=== PATIENT | male | born 1980 | race Two or more races ===

== ENCOUNTER 2017-02-16 14:16 | Emergency (ER) | payer OTHER ==
[2017-02-16 14:31] VITALS: BP 124/85; PULSE 84; TEMP 98.3; BMI 38.4
--- NOTE | 2017-02-16 15:07 | PDOC ---
History of Present Illness - General Chief Complaint: Pain Stated Complaint: LT LEG PAIN Time Seen by Provider: 02/16/17 14:36 History Source: Patient Exam Limitations: No Limitations - History of Present Illness Initial Comments: 02/16/17 15:14 36 yr male with c/o left knee injury "2 sundays ago" fell while taking out an air conditioner. Pt states yesterday he re-injured it falling in the pool. Pt states he is unable to see an orthopedist. Pt has no medical history or allergies. 02/16/17 15:20 Past History - Past Medical History Allergies/Adverse Reactions: Allergies Allergy/AdvReac Type Severity Reaction Status Date / Time hydrochlorothiazide Allergy Verified 02/16/17 14:21 [From Hyzaar] losartan potassium Allergy Verified 02/16/17 14:21 [From Hyzaar] Home Medications: Ambulatory Orders NK [No Known Home Medication] 02/16/17 Anemia: No Asthma: No Cancer: No Cardiac Disorders: No CVA: No COPD: No CHF: No DVT: No Dementia: No Diabetes: Yes (not any more) Dialysis: No GI Disorders: No Disorders: No HTN: Yes Hypercholesterolemia: No HIV: No Kidney Stones: Yes Liver Disease: No Psychiatric Problems: No Seizures: No Thyroid Disease: No Lung CA: No - Surgical History Abdominal Surgery: Yes (GASTRIC SLEEVE: 2011) Appendectomy: No Cardiac Surgery: No Cholecystectomy: No Lung Surgery: No Neurologic Surgery: No Orthopedic Surgery: No - Immunization History Immunization Up to Date: Yes - Psycho/Social/Smoking Cessation Hx Anxiety: Yes Suicidal Ideation: No Smoking Status: No Smoking History: Never smoked Have you smoked in the past 12 months: Yes Number of Cigarettes Smoked Daily: 6 Information on smoking cessation initiated: Yes 'Breaking Loose' booklet given: 02/16/17 Hx Alcohol Use: No Drug/Substance Use Hx: No Substance Use Type: None Hx Substance Use Treatment: No Review of Systems - Review of Systems Able to Perform ROS?: Yes Is the patient limited Albanian proficient: No Constitutional: No: Symptoms Reported HEENTM: No: Symptoms Reported Respiratory: No: Symptoms reported Cardiac (ROS): No: Symptoms Reported ABD/GI: No: Symptoms Reported : No: Symptoms Reported Musculoskeletal: Yes: See HPI *Physical Exam - Vital Signs Last Vital Signs Temp Pulse Resp BP Pulse Ox 98.3 F 84 19 124/85 99 02/16/17 14:18 02/16/17 14:18 02/16/17 14:18 02/16/17 14:18 02/16/17 14:18 - Physical Exam General Appearance: Yes: Nourished, Appropriately Dressed HEENT: positive: EOMI, GILBERTO Neck: negative: Tender Respiratory/Chest: positive: Lungs Clear, Normal Breath Sounds Cardiovascular: positive: Regular Rhythm, Regular Rate Extremity: positive: Normal Capillary Refill, Normal Inspection, Normal Range of Motion, Tender (anterior patella with extension, no swelling no crepitus, nv intact FROM ) Integumentary: positive: Normal Color, Dry, Warm Neurologic: positive: Fully Oriented, Alert, Normal Mood/Affect, Normal Response , Motor Strength 12/02 ED Treatment Course - RADIOLOGY Radiology Studies Ordered: Category Date Time Status KNEE 3 POS-LEFT [RAD] Stat Radiology 02/16/17 14:59 Ordered Medical Decision Making - Medical Decision Making 02/16/17 15:22 cc: knee injury will xray to r/o fracture no deformity or swelling nv intact FROM 02/16/17 15:23 *DC/Admit/Observation/Transfer Diagnosis at time of Disposition: Knee injury Qualifiers: Encounter type: initial encounter Laterality: left Qualified Code(s): S89.92XA - Unspecified injury of left lower leg, initial encounter - Discharge Dispostion Disposition: HOME Condition at time of disposition: Good - Referrals Referrals: Ilia Pedroza MD [Primary Care Provider] - Robert Cooper MD [Staff Physician] - - Patient Instructions Additional Instructions: follow with the orthopedist listed below, takes your insurance call today tell them you were in the ER and need to see the orthopedist within a week elevate the knee and apply ice every 2hrs for 20 minutes take naprosyn as directed for pain (over the counter Aleve or naprosyn) - Post Discharge Activity
== END 2017-02-16 16:01 | disposition home or self-care (01) ==
LOC: JERFT 14:16
DX: S89.82XA Other specified injuries of left lower leg, initial encounter (principal); W16.012A Fall into swimming pool striking water surface causing other injury, initial encounter; Y93.11 Activity, swimming; Y92.34 Swimming pool (public) as the place of occurrence of the external cause; Y99.8 Other external cause status
CPT/HCPCS: 73562-TC-LT; 99281-25

== ENCOUNTER 2017-07-21 17:25 | Emergency (ER) | payer OTHER ==
[2017-07-21 17:40] VITALS: BP 130/82; PULSE 69; TEMP 98.5; BMI 39.9
--- NOTE | 2017-07-21 17:44 | PDOC ---
History of Present Illness - General History Source: Patient Exam Limitations: No Limitations - History of Present Illness Initial Comments: 07/21/17 19:00 The patient is a 36 year old male, with a significant past medical history s/p gastric bypass (2011), who presents to the emergency department with, significant lower back pain and headache. He reports his lower back pain to be constant for three days. He describes his lower back pain to be radiating across and shooting down to his right leg and buttocks. He reports that his lower back pain has caused He reports his headache to have been intermittent for 2 weeks and constant for 4 days. He describes his headache to begin at the back of his neck and diffuse to the front. He reports to have taken Tylenol Arthritis for his backache and headache, without relief. He reports to previously have hypertension and Diabetes mellitus which has resolved since his gastric bypass surgery. He denies any recent cold or allergies. He denies any recent fevers, chills, or dizziness. He denies any recent nausea, vomit, diarrhea or constipation. He denies any recent chest pain or shortness of breath. He denies any recent dysuria, frequency, urgency or hematuria. Allergies: Hyzaar (Rash) Past surgical history: Gastric bypass (2011) Social History: Smoker (6 cigarettes per day). Social EtOH use. Denies recreational drug use. Primary Care Physician: Dr. Ilia Pedroza <Nataly Ugalde - Last Filed: 07/21/17 19:00> <Deandre Turner - Last Filed: 07/26/17 08:37> - General Chief Complaint: Pain Stated Complaint: BACK PAIN, HEADACHE Time Seen by Provider: 07/21/17 17:33 Past History <Nataly Ugalde - Last Filed: 07/21/17 19:00> - Past Medical History Anemia: No Asthma: No Cancer: No Cardiac Disorders: No CVA: No COPD: No CHF: No DVT: No Dementia: No Diabetes: Yes (NOT ANY MORE) Dialysis: No GI Disorders: No Disorders: No HTN: Yes (H/O) Hypercholesterolemia: No Kidney Stones: Yes (H/O) Liver Disease: No Psychiatric Problems: No Seizures: No Thyroid Disease: No Lung CA: No - Surgical History Abdominal Surgery: Yes (GASTRIC SLEEVE: 2012) Appendectomy: No Cardiac Surgery: No Cholecystectomy: No Lung Surgery: No Neurologic Surgery: No Orthopedic Surgery: No - Immunization History Immunization Up to Date: Yes - Suicide/Smoking/Psychosocial Hx Smoking Status: No Smoking History: Current every day smoker Have you smoked in the past 12 months: Yes Number of Cigarettes Smoked Daily: 6 Information on smoking cessation initiated: Yes 'Breaking Loose' booklet given: 07/21/17 Hx Alcohol Use: (social) Drug/Substance Use Hx: No Substance Use Type: None Hx Substance Use Treatment: No <Deandre Turner - Last Filed: 07/26/17 08:37> - Past Medical History Allergies/Adverse Reactions: Allergies Allergy/AdvReac Type Severity Reaction Status Date / Time hydrochlorothiazide Allergy Verified 07/21/17 17:28 [From Hyzaar] losartan potassium Allergy Verified 07/21/17 17:28 [From Hyzaar] Home Medications: Ambulatory Orders Hydroxyzine Pamoate [Vistaril -] 50 mg PO QID PRN #20 capsule 07/21/17 Ketorolac Tromethamine [Toradol] 10 mg PO Q6H #20 tablet 07/21/17 Oxycodone HCl/Acetaminophen [Percocet 5-325 mg Tablet] 1 - 2 tab PO Q6H PRN #12 tablet MDD 8 07/21/17 Zolpidem Tartrate [Ambien Cr] 6.25 mg PO HS PRN #6 tab.mphase MDD 1 07/21/17 Trauma Specific PMHX - Complaint Specific PMHX Arthritis: No Back Injury: Yes Neck Injury: No Hx Sacro Iliac Joint Dysfunction: No <Deandre Turner - Last Filed: 07/26/17 08:37> Review of Systems - Review of Systems Able to Perform ROS?: Yes Comments:: 07/21/17 19:01 CONSTITUTIONAL: Absent: fever, no chills, no fatigue EYES: Absent: visual changes ENT: Absent: ear pain, no sore throat CARDIOVASCULAR: Absent: chest pain, no palpitations RESPIRATORY: Absent: cough, no SOB GI: Absent: abdominal pain, no nausea, no vomiting, no constipation, no diarrhea GENITOURINARY: Absent: dysuria, no frequency, no hematuria MUSKULOSKELETAL: +Lower back pain. +Right leg and gluteus marci pain. Absent: no arthralgia SKIN: Absent: rash NEURO:+Headache All Other Systems: Reviewed and Negative <Nataly Ugalde - Last Filed: 07/21/17 19:00> *Physical Exam - Vital Signs Last Vital Signs Temp Pulse Resp BP Pulse Ox 98.5 F 69 18 130/82 100 07/21/17 17:25 07/21/17 17:25 07/21/17 17:25 07/21/17 17:25 07/21/17 17:25 - Physical Exam Comments: 07/21/17 19:01 GENERAL: + Moderately obese. +Mild distress due to back pain but fully ambulatory and cooperative. No reported bowel or bladder incontinence or retention good sphincter tone. Well developed, well nourished. Awake and alert. HEENT: Pupils 4mm round and reactive. Fundoscopic normal. Normocephalic, atraumatic. PERRLA, EOMI. No conjunctival pallor. Sclera are non-icteric. Moist mucous membranes. Oropharynx is clear. NECK: Supple. Full ROM. No JVD. Carotid pulses 2+ and symmetric, without bruits. No thyromegaly. No lymphadenopathy. CARDIOVASCULAR: Regular rate and rhythm. No murmurs, rubs, or gallops. Distal pulses are 2+ and symmetric. PULMONARY: No evidence of respiratory distress. Lungs clear to auscultation bilaterally. No wheezing, rales or rhonchi. ABDOMINAL: Soft. Non-tender. Non-distended. No rebound or guarding. No organomegaly. Normoactive bowel sounds. MUSCULOSKELETAL Normal range of motion at all joints. No bony deformities or tenderness. No CVA tenderness. EXTREMITIES: No cyanosis. No clubbing. No edema. No calf tenderness. SKIN: Warm and dry. Normal capillary refill. No rashes. No jaundice. NEUROLOGICAL: Spinal loss of normal lumbar lordosis. Straightening and spasming of paravertebral vertebrae. No point tenderness or inflammation. Scarring apparent due to multiple back surgeries. Mild weakness with plantar flexion of foot. No sensory deficits. Reflexes intact. Straight leg raising positive with pain radiating to right posterior buttock and thigh. No saddle anesthesia. Alert, awake, appropriate. Cranial nerves 2-12 intact. No deficits to light touch and temperature in face, upper extremities. No motor deficits in the in face, upper extremities. Normoreflexic in the upper and lower extremities. Normal speech. Toes are down-going bilaterally. Gait is normal without ataxia. PSYCHIATRIC: Cooperative. Good eye contact. Appropriate mood and affect. <Nataly Ugalde - Last Filed: 07/21/17 19:00> - Vital Signs Last Vital Signs Temp Pulse Resp BP Pulse Ox 98.5 F 69 18 130/82 100 07/21/17 17:25 07/21/17 17:25 07/21/17 17:25 07/21/17 17:25 07/21/17 17:25 <Deandre Turner - Last Filed: 07/26/17 08:37> ED Treatment Course - LABORATORY CBC & Chemistry Diagram: 07/21/17 18:30 07/21/17 18:30 - ADDITIONAL ORDERS Additional order review: Laboratory Results 07/21/17 18:30 Urine Color Yellow Urine Appearance Clear Urine pH 5.5 Ur Specific [place] 1.015 Urine Protein Negative Urine Glucose (UA) Negative Urine Ketones Negative Urine Blood 2+ H Urine Nitrite Negative Urine Bilirubin Negative Urine Urobilinogen 0.2 Ur Leukocyte Esterase Negative Urine RBC 5-10 Urine WBC 2-4 Ur Epithelial Cells Few Urine Bacteria Few - Medications Given in the ED: ED Medications Discontinued Medications Generic Name Dose Route Start Last Admin Trade Name Narenq PRN Reason Stop Dose Admin Hydroxyzine Pamoate 50 mg 07/21/17 18:05 07/21/17 18:25 Vistaril - PO 07/21/17 18:06 50 mg ONCE ONE Administration Ketorolac Tromethamine 60 mg 07/21/17 18:05 07/21/17 18:30 Toradol Injection - IM 07/21/17 18:06 60 mg ONCE ONE Administration <Nataly Ugalde - Last Filed: 07/21/17 19:00> - LABORATORY CBC & Chemistry Diagram: 07/21/17 18:30 07/21/17 18:30 <Deandre Turner - Last Filed: 07/26/17 08:37> Medical Decision Making - Medical Decision Making 07/21/17 18:41 Patient with an exacerbation of chronic low back pain, bilateral, with signs of radiculopathy on the right. No bowel or bladder dysfunction. No trauma or other injuries noted. There are no inflammatory changes noted in the lumbosacral spine. There is evidence of spasm and loss of lumbar lordosis. Mild weakness of plantar flexion and straight leg positive. Neurological exam is otherwise normal. There is no nuchal rigidity, ENT is clear , and his description of the headache as emanating from the base of the cervical spine and both shoulders, progressing to both occipital areas, suggests tension/muscle spasm. 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 Considerable relief with Toradol, regarding both the back pain and the headache. Patient's neurological status is stable. His headache is resolving. His back pain is improved. Medications prescribed and referred to exhibition specialist for further treatment. CBC, chemistries, and urinalysis are still pending. Signed out to Dr. Sofia 7 PM pending lab results and further disposition. <Deandre Turner - Last Filed: 07/26/17 08:37> *DC/Admit/Observation/Transfer - Attestations Scribe Attestion: 07/21/17 19:01 Documentation prepared by Nataly Ugalde, acting as medical record specialist for Deandre Longoria MD. <Nataly Ugalde - Last Filed: 07/21/17 19:00> - Discharge Dispostion Admit: No <Deandre Turner - Last Filed: 07/26/17 08:37> Diagnosis at time of Disposition: Lumbar pain with radiation down right leg - Discharge Dispostion Disposition: HOME Condition at time of disposition: Improved - Prescriptions Prescriptions: Hydroxyzine Pamoate [Vistaril -] 50 mg PO QID PRN #20 capsule PRN Reason: muscle relaxation, sleep Ketorolac Tromethamine [Toradol] 10 mg PO Q6H #20 tablet Oxycodone HCl/Acetaminophen [Percocet 5-325 mg Tablet] 1 - 2 tab PO Q6H PRN #12 tablet MDD 8 PRN Reason: Severe Pain Zolpidem Tartrate [Ambien Cr] 6.25 mg PO HS PRN #6 tab.mphase MDD 1 PRN Reason: Insomnia - Referrals Referrals: Ilia Pedroza MD [Primary Care Provider] - 3 days Shivam Nguyen MD [Staff Physician] - 1 week - Patient Instructions Printed Discharge Instructions: DI for Sciatica - Post Discharge Activity Forms/Work/School Notes: Back to Work
[2017-07-21] MEDS ORDERED: KETOROLAC TROMETHAMINE 60 MG/2 ML VIAL IM ONE (18:05)
[2017-07-21] MEDS ORDERED: hydrOXYzine PAMOATE 50 MG CAPSULE (FP) PO ONE (18:05)
[2017-07-21] MEDS ORDERED: hydrOXYzine PAMOATE 25 MG CAPSULE (FP) PO ONE (18:08)
[2017-07-21] MEDS ORDERED: KETOROLAC TROMETHAMINE 60 MG/2 ML VIAL ONE (18:08)
[2017-07-21 18:40] LABS: PH,URINE 5.5 (4.5-8); URINE APPEARANCE Clear; URINE BILIRUBIN Negative (NEGATIVE); URINE GLUCOSE (UA) Negative (NEGATIVE); URINE KETONE Negative (NEGATIVE); URINE LEUK ESTERASE Negative (NEGATIVE); URINE NITRITE Negative (NEGATIVE); URINE PROTEIN Negative (NEGATIVE); URINE UROBILINOGEN 0.2 (0.2-1.0)
[2017-07-21 18:44] LABS: URINE BLOOD 2+ (NEGATIVE); URINE COLOR YELLOW
[2017-07-21 18:50] LABS: URINE BACTERIA FEW /hpf (NEGATIVE)
[2017-07-21 18:59] LABS: BASO % 0.4 % (0-2.0); EOS % 0.8 % (0-4.5); MCH 29.1 pg (25.7-33.7); MCHC 34.6 g/dl (32.0-35.9); MEAN CELL VOLUME 84.2 fl (80-96); MEAN PLT VOLUME 9.8 fl (7.5-11.1); NEUT % 70.5 % (42.8-82.8); PLATELET COUNT 184 K/MM3 (134-434); RDW 12.6 % (11.9-15.9); WHITE BLOOD COUNT 9.3 K/mm3 (4.0-10.8)
[2017-07-21 19:01] LABS: NEUT # 6.5 # (42.8-82.8)
[2017-07-21 19:02] LABS: EOS # 0.1 #; LYMPH # 2.1 # (8-40); MONO # 0.6 #
[2017-07-21 19:07] LABS: ALK PHOS 54 U/L (32-92); ANION GAP 6 (8-16); BILIRUBIN,TOTAL 0.4 mg/dl (0.2-1.0); CALCIUM 9.1 mg/dl (8.4-10.2); CO2 29 mmol/L (22-28); CREATININE 0.7 mg/dl (0.6-1.3); GLUCOSE,RANDOM 81 mg/dl (74-106); SGOT/AST 22 U/L (10-42); SGPT/ALT 19 U/L (10-40); TOT PROT 7.7 g/dl (6.4-8.3)
== END 2017-07-21 19:48 | disposition home or self-care (01) ==
LOC: FER 17:25
PROC: 3E0233Z Introduction of Anti-inflammatory into Muscle, Percutaneous Approach (ICD-10-PCS; principal; 2017-07-21)
DX: M54.5 Low back pain (principal); M79.604 Pain in right leg
CPT/HCPCS: 36415; 72100-TC; 80053; 81003; 81015; 85025; 99283-25

== ENCOUNTER 2018-06-13 21:19 | Emergency (ER) | payer SELFPAY ==
--- NOTE | 2018-06-13 21:25 | PDOC ---
Rapid Medical Evaluation Time Seen by Provider: 06/13/18 21:22 Medical Evaluation: Allergies Allergy/AdvReac Type Severity Reaction Status Date / Time hydrochlorothiazide Allergy Verified 10/15/17 07:46 [From Hyzaar] losartan potassium Allergy Verified 10/15/17 07:46 [From Hyzaar] 06/13/18 21:22 I have performed a brief in-person evaluation of this patient. The patient presents with a chief complaint of: chest tightness radiating to left arm x1 hour Pertinent physical exam findings: Lungs CTAB. RRR. No m/r/g. I have ordered the following: EKG, labs, urine, CXR The patient will proceed to the ED for further evaluation. Discharge Disposition - Diagnosis Chest pain - Referrals - Patient Instructions - Post Discharge Activity
[2018-06-13 21:26] VITALS: BP 142/85; PULSE 63; TEMP 98.2; BMI 39.9
[2018-06-13 22:09] LABS: BASO % 0.5 % (0-2.0); EOS % 0.5 % (0-4.5); HEMATOCRIT 45.4 % (35.4-49); HEMOGLOBIN 15.8 GM/dL (11.7-16.9); LYMPH % 21.9 % (8-40); MCH 29.2 pg (25.7-33.7); MCHC 34.8 g/dl (32.0-35.9); MEAN CELL VOLUME 83.7 fl (80-96); MEAN PLT VOLUME 9.5 fl (7.5-11.1); MONO % 6.7 % (3.8-10.2); NEUT % 70.4 % (42.8-82.8); PLATELET COUNT 211 K/MM3 (134-434); RBC 5.42 M/mm3 (4.00-5.60); RDW 13.5 % (11.9-15.9); WHITE BLOOD COUNT 9.2 K/mm3 (4.0-10.0)
[2018-06-13] MEDS ORDERED: ASPIRIN 325 MG ENTERIC COATED TABLET (FP) PO ONE (22:24)
[2018-06-13] MEDS ORDERED: ASPIRIN 325 MG TABLET ONE (22:31)
[2018-06-13 22:33] LABS: INR 1.02 (0.83-1.09)
[2018-06-13 23:02] LABS: URINE APPEARANCE CLEAR; URINE BILIRUBIN NEGATIVE (<2.0 mg/dL); URINE COLOR LTYELLOW; URINE GLUCOSE (UA) NEGATIVE (NEGATIVE); URINE KETONE NEGATIVE (NEGATIVE); URINE LEUK ESTERASE NEGATIVE (NEGATIVE); URINE NITRITE NEGATIVE (NEGATIVE); URINE PROTEIN NEGATIVE (NEGATIVE); URINE UROBILINOGEN NEGATIVE mg/dL (0.2-1.0)
[2018-06-13 23:04] LABS: ALBUMIN 3.6 g/dl (3.4-5.0); ALK PHOS 70 U/L (45-117); ANION GAP 9 MMOL/L (8-16); BILIRUBIN,TOTAL 0.3 mg/dL (0.2-1); BLOOD UREA NITROGEN 10 mg/dL (7-18); CALCIUM 8.4 mg/dL (8.5-10.1); CHLORIDE 105 mmol/L (98-107); CO2 25 mmol/L (21-32); CREATININE 0.7 mg/dL (0.55-1.3); GLUCOSE,RANDOM 94 mg/dL (74-106); POTASSIUM 3.5 mmol/L (3.5-5.1); SGOT/AST 25 U/L (15-37); SGPT/ALT 35 U/L (13-61); SODIUM 139 mmol/L (136-145); TOT PROT 7.9 g/dl (6.4-8.2)
--- NOTE | 2018-06-13 23:12 | PDOC ---
Attending Attestation - HPI HPI: 06/13/18 23:13 The patient is a 37 year old male, with a significant past medical history of gastric sleeve (2011), scoliosis, and laminectomy, who presents to the emergency department with, chest pain. As per patient, his chest pain onset 2 hours ago radiating to his left arm. Upon arriving to the ED, the patient notes his pain feels like a tightness with the left arm pain. Patient endorses at the time of the pain he was drinking (4th glass of rum). During his episode of chest pain he experienced an associated of diaphoresis and shortness of breath which has since resolved. He notes to previously have hypertension and Diabetes mellitus which has resolved since his gastric bypass surgery. He denies any recent fevers, chills, headache or dizziness. He denies any recent nausea, vomit, diarrhea or constipation. He denies any recent dysuria, frequency, urgency or hematuria. Allergies: Hyzaar (Rash), Past surgical history: Gastric bypass (2011) Laminectomy. Social History: Smoker (6 cigarettes per day). Social EtOH use. Denies recreational drug use. Primary Care Physician: Dr. Ilia Pedroza <Nataly Ugalde - Last Filed: 06/13/18 23:12> - Resident Resident Name: Syeda Live - ED Attending Attestation I have performed the following: I have examined & evaluated the patient, The case was reviewed & discussed with the resident, I agree w/resident's findings & plan, Exceptions are as noted - Physicial Exam PE: 06/14/18 00:57 agree with exam as documented by resident - Medical Decision Making 06/14/18 00:57 Young male with DM? htn, large habitus here with chest pain with concerning features. Left sided pressure like px, radiating down the L arm a/w sob, diaphoresis, starting 2 hours ago. Currently pain free w/o intervention f/u labs, ekg, serial troponin re-eval dispo per clinical course Patient requesting to leave before completion of work up. Pt is AOx3 with capacity to decide course of care. <Medhat Morrow - Last Filed: 06/14/18 01:02> Attestations - Attestations 06/13/18 23:13 Documentation prepared by Nataly Ugalde, acting as medical receptionist biller for Medhat Morrow MD. <Nataly Ugalde - Last Filed: 06/13/18 23:12>
--- NOTE | 2018-06-13 23:40 | PDOC ---
History of Present Illness - General Chief Complaint: Chest Pain Stated Complaint: CHEST PAIN Time Seen by Provider: 06/13/18 21:22 History Source: Patient Exam Limitations: No Limitations - History of Present Illness Initial Comments: 06/13/18 23:36 Pt is a 37yo m with PMH of gastric bypass 2011, resolved htn, presenting to ED with complaints of chest pain that started 1 hour prior to ED arrival. Pt says he was sitting in his recliner, on his 4th cup of rum when he had sudden onset chest pain radiating down to L arm with diaphoresis. Pt described pain as a squeezing type of pain. He has never had pain like this before. Associated with shortness of breath. He denies cough, fever, chills, back pain, neck pain, headache, loss of consciousness. He says chest pain has subsided a little but has pain in his L arm, mainly in the hand. Pt says his grandmother had an DC when she was older. Denies DC or heart problems in family when they were young. Smokes around 8 cigarettes daily. PMD: Yovany PMH: see hpi PSH: see hpi Meds: none Social: smokes 8 cigarettes/daily Allergies: valsartan Past History - Past Medical History Allergies/Adverse Reactions: Allergies Allergy/AdvReac Type Severity Reaction Status Date / Time hydrochlorothiazide Allergy Verified 06/13/18 21:26 [From Hyzaar] losartan potassium Allergy Verified 06/13/18 21:26 [From Hyzaar] Home Medications: Ambulatory Orders NK [No Known Home Medication] 10/15/17 Anemia: No Asthma: No Cancer: No Cardiac Disorders: No CVA: No COPD: No CHF: No DVT: No Dementia: No Diabetes: Yes (NOT ANY MORE) Dialysis: No GI Disorders: No Disorders: No HTN: Yes (H/O) Hypercholesterolemia: No Kidney Stones: Yes (H/O) Liver Disease: No Psychiatric Problems: No Seizures: No Thyroid Disease: No Lung CA: No - Surgical History Abdominal Surgery: Yes (GASTRIC SLEEVE: 2011) Appendectomy: No Cardiac Surgery: No Cholecystectomy: No Lung Surgery: No Neurologic Surgery: No Orthopedic Surgery: No - Immunization History Immunization Up to Date: Yes - Suicide/Smoking/Psychosocial Hx Smoking Status: No Smoking History: Never smoked Have you smoked in the past 12 months: No Number of Cigarettes Smoked Daily: 6 Information on smoking cessation initiated: No 'Breaking Loose' booklet given: 07/21/17 Hx Alcohol Use: No Drug/Substance Use Hx: No Substance Use Type: None Hx Substance Use Treatment: No *Physical Exam - Vital Signs Last Vital Signs Temp Pulse Resp BP Pulse Ox 98.2 F 63 16 142/85 100 06/13/18 21:24 06/13/18 21:24 06/13/18 21:24 06/13/18 21:24 06/13/18 21:24 Heart Score/ECG Review - History History: Highly suspicious - Electrocardiogram EKG: Normal - Age Age: </= 45 - Risk Factors Risk Factors Heart Score: Yes Smoking History, Yes Hx Obesity Based on the list above the patient has:: 1-2 risk factors - Troponin Troponin: </= normal limit - Score Heart Score - Total: 3 ED Treatment Course - LABORATORY CBC & Chemistry Diagram: 06/13/18 21:47 06/13/18 22:28 - ADDITIONAL ORDERS Additional order review: Laboratory Results 06/13/18 06/13/18 06/13/18 22:28 22:28 22:00 PT with INR INR Sodium 139 Potassium 3.5 Chloride 105 Carbon Dioxide 25 Anion Gap 9 BUN 10 Creatinine 0.7 Creat Clearance w eGFR > 60 Random Glucose 94 Calcium 8.4 L Magnesium Total Bilirubin 0.3 AST 25 ALT 35 Alkaline Phosphatase 70 Creatine Kinase Troponin I < 0.02 Total Protein 7.9 Albumin 3.6 Urine Color Ltyellow Urine Appearance Clear Urine pH 6.0 Ur Specific [place] 1.016 Urine Protein Negative Urine Glucose (UA) Negative Urine Ketones Negative Urine Blood Negative Urine Nitrite Negative Urine Bilirubin Negative Urine Urobilinogen Negative Ur Leukocyte Esterase Negative 06/13/18 06/13/18 21:47 21:47 PT with INR 12.00 INR 1.02 Sodium Cancelled Potassium Cancelled Chloride Cancelled Carbon Dioxide Cancelled Anion Gap Cancelled BUN Cancelled Creatinine Cancelled Creat Clearance w eGFR Cancelled Random Glucose Cancelled Calcium Cancelled Magnesium Cancelled Total Bilirubin Cancelled AST Cancelled ALT Cancelled Alkaline Phosphatase Cancelled Creatine Kinase Cancelled Troponin I Cancelled Total Protein Cancelled Albumin Cancelled Urine Color Urine Appearance Urine pH Ur Specific [place] Urine Protein Urine Glucose (UA) Urine Ketones Urine Blood Urine Nitrite Urine Bilirubin Urine Urobilinogen Ur Leukocyte Esterase 06/13/18 21:47 RBC 5.42 MCV 83.7 MCHC 34.8 RDW 13.5 MPV 9.5 Neutrophils % 70.4 Lymphocytes % 21.9 D Monocytes % 6.7 Eosinophils % 0.5 Basophils % 0.5 - Medications Given in the ED: ED Medications Discontinued Medications Generic Name Dose Route Start Last Admin Trade Name Keyur PRN Reason Stop Dose Admin Aspirin 325 mg 06/13/18 22:24 06/13/18 22:34 Ecotrin - PO 06/13/18 22:25 325 mg ONCE ONE Administration Medical Decision Making - Medical Decision Making 06/13/18 23:45 PERC negative. HEART score: second trop and dispo *DC/Admit/Observation/Transfer Diagnosis at time of Disposition: Chest pain Qualifiers: Chest pain type: unspecified Qualified Code(s): R07.9 - Chest pain, unspecified - Discharge Dispostion Disposition: HOME Condition at time of disposition: Good Decision to Admit order: No - Referrals - Patient Instructions Printed Discharge Instructions: DI for Chest Pain Additional Instructions: You were seen here today for chest pain. All of your tests were normal. - Post Discharge Activity
--- NOTE | 2018-06-14 11:52 | EKG ---
Test Reason : Blood Pressure : / mmHG Vent. Rate : 057 BPM Atrial Rate : 057 BPM P-R Int : 190 ms QRS Dur : 108 ms QT Int : 402 ms P-R-T Axes : 052 -03 011 degrees QTc Int : 391 ms SINUS BRADYCARDIA MINIMAL VOLTAGE CRITERIA FOR LVH, MAY BE NORMAL VARIANT BORDERLINE ECG WHEN COMPARED WITH ECG OF 14-JAN-2016 18:45, RSR' PATTERN IN V1 IS NO LONGER PRESENT Confirmed by CLAU VARGAS, MICHELLE ([id number]) on 06/14/2018 11:52:44 AM Referred By: Confirmed By:MICHELLE OLGUIN MD
== END 2018-06-14 01:08 | disposition home or self-care (01) ==
LOC: JER 21:19
DX: R07.9 Chest pain, unspecified (principal); Z87.891 Personal history of nicotine dependence; Z98.84 Bariatric surgery status; I10 Essential (primary) hypertension; Z87.442 Personal history of urinary calculi
CPT/HCPCS: 36415; 71046-TC-FY; 80053; 81003; 84484; 85025; 85610; 93005; 93010; 99282-25

== ENCOUNTER 2018-09-11 09:25 | Emergency (ER) | payer SELFPAY ==
[2018-09-11 09:41] VITALS: BP 152/91; PULSE 57; TEMP 98.3; BMI 44.1
[2018-09-11] MEDS ORDERED: METOCLOPRAMIDE HCL INJECTION 10 MG/2 ML VIAL IVPB ONE (10:29)
[2018-09-11] MEDS ORDERED: ACETAMINOPHEN 1000 MG/100 ML VIAL (NON FORMULARY) IVPB ONE (10:30)
[2018-09-11] MEDS ORDERED: SODIUM CHLORIDE 1,000 ML IV STA (10:33)
--- NOTE | 2018-09-11 10:39 | PDOC ---
History of Present Illness - General Chief Complaint: Headache Stated Complaint: HEADACHE Time Seen by Provider: 09/11/18 10:10 History Source: Patient Exam Limitations: No Limitations - History of Present Illness Initial Comments: 09/11/18 10:39 Patient is a 37-year-old male with past medical history of headaches who presents to the ER for headache of 2 days. Patient states that his headache started on Monday. He took Motrin at home with relief of symptoms. He woke up Monday with again headache. Again he states he took Motrin and the headache resolved. Woke up again with the headache this morning, but he states that Motrin did not make it better so he presents to the ED for evaluation. Patient describes the headache as something tight around his head that is squeezing. He also states that he has associated neck tightness. Admits to photophobia but denies phonophobia. Denies fevers, chills, flulike symptoms, gait imbalance, weakness, dizziness and lightheadedness. Past History - Travel Traveled outside of the country in the last 30 days: No Close contact w/someone who was outside of country & ill: No - Past Medical History Allergies/Adverse Reactions: Allergies Allergy/AdvReac Type Severity Reaction Status Date / Time hydrochlorothiazide Allergy Verified 09/11/18 09:38 [From Hyzaar] losartan potassium Allergy Verified 09/11/18 09:38 [From Hyzaar] Home Medications: Ambulatory Orders NK [No Known Home Medication] 10/15/17 Anemia: No Asthma: No Cancer: No Cardiac Disorders: No CVA: No COPD: No CHF: No DVT: No Dementia: No Diabetes: Yes (NOT ANY MORE) Dialysis: No GI Disorders: No Disorders: No HTN: Yes (H/O) Hypercholesterolemia: No Kidney Stones: Yes (H/O) Liver Disease: No Psychiatric Problems: No Seizures: No Thyroid Disease: No Lung CA: No - Surgical History Abdominal Surgery: Yes (GASTRIC SLEEVE: 2011) Appendectomy: No Cardiac Surgery: No Cholecystectomy: No Lung Surgery: No Neurologic Surgery: No Orthopedic Surgery: No - Immunization History Immunization Up to Date: Yes - Suicide/Smoking/Psychosocial Hx Smoking Status: No Smoking History: Current every day smoker Have you smoked in the past 12 months: Yes Number of Cigarettes Smoked Daily: 5 Information on smoking cessation initiated: No 'Breaking Loose' booklet given: 07/21/17 Hx Alcohol Use: No Drug/Substance Use Hx: No Substance Use Type: None Hx Substance Use Treatment: No Review of Systems - Review of Systems Able to Perform ROS?: Yes Comments:: 09/11/18 10:31 CONSTITUTIONAL: Absent: fever, chills, diaphoresis, generalized weakness, malaise, loss of appetite HEENT: Absent: rhinorrhea, nasal congestion, throat pain, throat swelling, difficulty swallowing, mouth swelling, ear pain, eye pain, visual Changes CARDIOVASCULAR: Absent: chest pain, loss of consciousness, palpitations, irregular heart rate, peripheral edema RESPIRATORY: Absent: cough, shortness of breath, dyspnea with exertion, orthopnea, wheezing, stridor, hemoptysis GASTROINTESTINAL: Absent: abdominal pain, abdominal distension, nausea, vomiting, diarrhea, constipation, melena, hematochezia GENITOURINARY: Absent: dysuria, frequency, urgency, hesitancy, hematuria, flank pain, genital pain MUSCULOSKELETAL: Absent: myalgia, arthralgia, joint swelling SKIN: Absent: rash, itching, pallor HEMATOLOGIC/IMMUNOLOGIC: Absent: easy bleeding, easy bruising, lymphadenopathy, frequent infections ENDOCRINE: Absent: unexplained weight gain, unexplained weight loss, heat intolerance, cold intolerance NEUROLOGIC: Present: headache, photophobia Absent: focal weakness or paresthesias, dizziness , unsteady gait, seizure, mental status changes, bladder or bowel incontinence PSYCHIATRIC: Absent: anxiety, depression, suicidal or homicidal ideation, hallucinations. Is the patient limited Grenadian proficient: No *Physical Exam - Vital Signs Last Vital Signs Temp Pulse Resp BP Pulse Ox 98.3 F 57 L 18 152/91 100 09/11/18 09:38 09/11/18 09:38 09/11/18 09:38 09/11/18 09:38 09/11/18 09:38 - Physical Exam Comments: 09/11/18 10:32 GENERAL: Well developed, well nourished. Awake and alert. No acute distress. HEENT: Normocephalic, atraumatic. PERRLA, EOMI. No conjunctival pallor. Sclera are non- icteric. Moist mucous membranes. Oropharynx is clear. NECK: Supple. Full ROM. No JVD. Carotid pulses 2+ and symmetric, without bruits. No thyromegaly. No lymphadenopathy. CARDIOVASCULAR: Regular rate and rhythm. No murmurs, rubs, or gallops. Distal pulses are 2+ and symmetric. PULMONARY: No evidence of respiratory distress. Lungs clear to auscultation bilaterally. No wheezing, rales or rhonchi. ABDOMINAL: Soft. Non-tender. Non-distended. No rebound or guarding. No organomegaly. Normoactive bowel sounds. MUSCULOSKELETAL Normal range of motion at all joints. No bony deformities or tenderness. No CVA tenderness. EXTREMITIES: No cyanosis. No clubbing. No edema. No calf tenderness. SKIN: Warm and dry. Normal capillary refill. No rashes. No jaundice. NEUROLOGICAL: Alert, awake, appropriate. Cranial nerves 2-12 intact. No deficits to light touch and temperature in face, upper extremities and lower extremities. No motor deficits in the in face, upper extremities and lower extremities. Normoreflexic in the upper and lower extremities. Normal speech. Toes are down- going bilaterally. Gait is normal without ataxia. PSYCHIATRIC: Cooperative. Good eye contact. Appropriate mood and affect. Moderate Sedation - Procedure Monitoring Vital Signs: Procedure Monitoring Vital Signs Temperature 98.3 F 09/11/18 09:38 Pulse Rate 57 L 09/11/18 09:38 Respiratory Rate 18 09/11/18 09:38 Blood Pressure 152/91 09/11/18 09:38 O2 Sat by Pulse Oximetry (%) 100 09/11/18 09:38 Medical Decision Making - Medical Decision Making 09/11/18 10:39 Patient is a 37-year-old male past medical history of headaches who presents with a 3 day course of headache. Headache has gradually gotten worse over the past 3 days. No red flags on history or physical. Patient is neurologically intact with no focal findings. Unlikely subarachnoid hemorrhage at this time, given gradually worsening pain and tension-like pattern. Defer CT scan IV medication and fluids to be given. Reevaluate 09/11/18 11:44 Pt reports relief of headache after medication. Will dc home. Advised patient to f/u with his PCP for his blood pressure. I discussed the physical exam findings, ancillary test results and final diagnoses with the patient. I answered all of the patient's questions. The patient was satisfied with the care received and felt comfortable with the discharge plan and treatment plan. The Patient agrees to follow up with the primary care physician/specialist within 24-72 hours. Return precautions were given. *DC/Admit/Observation/Transfer Diagnosis at time of Disposition: Headache Qualifiers: Headache type: unspecified Headache chronicity pattern: acute headache Intractability: not intractable Qualified Code(s): R51 - Headache - Discharge Dispostion Disposition: HOME Condition at time of disposition: Stable Decision to Admit order: No - Referrals Referrals: Ilia Pedroza MD [Primary Care Provider] - Jose Winchester DO [Staff Physician] - - Patient Instructions Printed Discharge Instructions: DI for Headache Additional Instructions: You were evaluated for your headache today Please take Motrin 800mg every 8 hours for the next day to help prevent the headache from getting worse. Do not take more than 3,000mg a day. Do gentle stretching exercises of your neck Follow up with neurology for your headaches Follow up with your primary care doctor for your blood pressure. It was elevated today at 153/80 Return to the ED for worsening headache, dizziness, lightheadedness, or if you have any changes in your symptoms - Post Discharge Activity Forms/Work/School Notes: Back to Work
[2018-09-11] MEDS ORDERED: METOCLOPRAMIDE HCL INJECTION 10 MG/2 ML VIAL ONE (10:46)
[2018-09-11] MEDS ORDERED: ACETAMINOPHEN INJECTION 100 ML IVPB ONE (10:58)
== END 2018-09-11 12:15 | disposition home or self-care (01) ==
LOC: JERFT 09:25
PROC: 3E0337Z Introduction of Electrolytic and Water Balance Substance into Peripheral Vein, Percutaneous Approach (ICD-10-PCS; principal; 2018-09-11)
PROC: 3E033GC Introduction of Other Therapeutic Substance into Peripheral Vein, Percutaneous Approach (ICD-10-PCS; 2018-09-11)
PROC: 3E033GC Introduction of Other Therapeutic Substance into Peripheral Vein, Percutaneous Approach (ICD-10-PCS; 2018-09-11)
PROC: 3E033NZ Introduction of Analgesics, Hypnotics, Sedatives into Peripheral Vein, Percutaneous Approach (ICD-10-PCS; 2018-09-11)
DX: R51 Headache (principal)
CPT/HCPCS: 99281-25; J0131; J7030

== ENCOUNTER 2021-02-23 07:18 | Emergency (ER) | payer OTHER ==
[2021-02-23 07:46] VITALS: BMI 38.0
[2021-02-23] MEDS ORDERED: FAMOTIDINE 20 MG/50 ML IVPB 20 MG/50 ML MG IVPB ONE ×2 (07:55→08:20)
[2021-02-23] MEDS ORDERED: ACETAMINOPHEN 1000 MG/100 ML VIAL (NON FORMULARY) IVPB ONE (07:55)
[2021-02-23] MEDS ORDERED: MAG HYDROX/AL HYDROX/SIMETH 30 ML UNIT-DOSE CUP PO ONE ×2 (07:55→08:20)
[2021-02-23] MEDS ORDERED: SUCRALFATE 1 GM TABLET (FP) PO ONE ×2 (07:55→08:20)
[2021-02-23] MEDS ORDERED: SODIUM CHLORIDE 1,000 ML IV STA (08:25)
[2021-02-23] MEDS ORDERED: PANTOPRAZOLE SODIUM 40 MG VIAL IVPUSH ONE (08:35)
[2021-02-23] MEDS ORDERED: PANTOPRAZOLE SODIUM 40 MG/100 ML BAG IVPB ONE (08:39)
[2021-02-23] MEDS ORDERED: PANTOPRAZOLE SODIUM 40 MG VIAL ONE (08:39)
[2021-02-23] MEDS ORDERED: PANTOPRAZOLE SODIUM 80 MG in SODIUM CHLORIDE 100 ML IVPB SCH (08:45)
[2021-02-23 09:25] LABS: BASO % 0.4 % (0-2.0); EOS % 0.5 % (0-4.5); HEMOGLOBIN 13.9 GM/dL (11.7-16.9); LYMPH % 18.7 % (8-40); MCH 28.3 pg (25.7-33.7); MCHC 34.1 g/dl (32.0-35.9); MEAN PLT VOLUME 9.2 fl (7.5-11.1); MONO % 6.6 % (3.8-10.2); NEUT % 73.8 % (42.8-82.8); PLATELET COUNT 169 10^3/uL (134-434); RBC 4.94 M/mm3 (4.00-5.60); RDW 13.3 % (11.9-15.9); WHITE BLOOD COUNT 7.4 K/mm3 (4.0-10.0)
[2021-02-23 09:33] LABS: INR 1.06 (0.83-1.09); PROTHROMBIN TIME (PATIENT) 12.8 SEC (9.7-13.0)
[2021-02-23 09:36] LABS: ACTIVATED PTT 32.6 SECONDS (25.2-36.5)
[2021-02-23 09:47] LABS: ALBUMIN 3.5 g/dl (3.4-5.0); CALCIUM 8.6 mg/dL (8.5-10.1)
[2021-02-23 09:51] LABS: CREATININE 0.7 mg/dL (0.55-1.3)
[2021-02-23 09:52] LABS: BILIRUBIN,TOTAL 0.5 mg/dL (0.2-1); TOT PROT 7.3 g/dl (6.4-8.2)
[2021-02-23 10:35] VITALS: TEMP 98.5
[2021-02-23] MEDS ORDERED: ONDANSETRON 4 MG/2 ML VIAL IVPUSH ONE (11:06)
[2021-02-23] MEDS ORDERED: ONDANSETRON 4 MG/2 ML VIAL ONE (11:08)
[2021-02-23] MEDS ORDERED: OXYMETAZOLINE 0.05% NASAL SOLUTION 15 ML BOTTLE NS ONE (11:11)
[2021-02-23 13:28] LABS: BASO % 0.6 % (0-2.0); EOS % 0.4 % (0-4.5); HEMATOCRIT 41.3 % (35.4-49); HEMOGLOBIN 13.9 GM/dL (11.7-16.9); LYMPH % 18.6 % (8-40); MCH 28.1 pg (25.7-33.7); MCHC 33.8 g/dl (32.0-35.9); MEAN CELL VOLUME 83.2 fl (80-96); MEAN PLT VOLUME 8.4 fl (7.5-11.1); MONO % 6.5 % (3.8-10.2); NEUT % 73.9 % (42.8-82.8); PLATELET COUNT 163 10^3/uL (134-434); RBC 4.96 M/mm3 (4.00-5.60); RDW 13.2 % (11.9-15.9); WHITE BLOOD COUNT 7.3 K/mm3 (4.0-10.0)
[2021-02-23 14:15] VITALS: BP 134/81; PULSE 52
== END 2021-02-23 14:14 | disposition home or self-care (01) ==
LOC: JER 07:18
PROC: 3E033GC Introduction of Other Therapeutic Substance into Peripheral Vein, Percutaneous Approach (ICD-10-PCS; principal; 2021-02-23)
PROC: 3E033GC Introduction of Other Therapeutic Substance into Peripheral Vein, Percutaneous Approach (ICD-10-PCS; 2021-02-23)
PROC: 3E033GC Introduction of Other Therapeutic Substance into Peripheral Vein, Percutaneous Approach (ICD-10-PCS; 2021-02-23)
PROC: 3E0337Z Introduction of Electrolytic and Water Balance Substance into Peripheral Vein, Percutaneous Approach (ICD-10-PCS; 2021-02-23)
DX: R04.0 Epistaxis (principal)
CPT/HCPCS: 36415; 71045-TC-FY; 74177-TC; 80053; 83690; 85025; 85610; 85730; 86850; 86900; 86901; 93005; 93010; 99285-25; C9803; Q9967; U0003; U0005